=== PATIENT | male | born 1960 | race Caucasian/White ===

== ENCOUNTER 2017-11-14 19:11 | Observation (INO) ==
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
[2017-11-14] MEDS ORDERED: Bisacodyl 10 MG Supp RECTAL PRN (20:48)
[2017-11-14] MEDS ORDERED: Acetaminophen 325 MG Tablet PO PRN (20:48)
[2017-11-14] MEDS ORDERED: Haloperidol Inj 5 MG/ML Ampul IV.PUSH PRN (20:51)
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
[2017-11-14] MEDS: Sod Chloride 0.9% Inj 1,000 ML IV.CONT SCH (22:34)
[2017-11-15] MEDS: Sod Chloride 0.9% Inj 1,000 ML IV.CONT SCH ×3 (05:25→20:58)
[2017-11-15] MEDS: LORazepam 1 MG Tablet PO PRN (05:26)
[2017-11-15 06:41] LABS: Baso # (Auto) 0.1 th/mm3 (0.0-0.2); Baso % (Auto) 1.3 % (0.0-2.0); Hematocrit 38.3 % (39.0-51.0); Hemoglobin 13.3 gm/dL (13.0-17.0); Lymph # (Auto) 0.7 th/mm3 (1.0-4.8); Mean Corpuscular HGB Conc 34.7 % (32.0-36.0); Mean Corpuscular Hemoglobin 37.3 pg (27.0-34.0); Mean Corpuscular Volume 107.6 fL (80.0-100.0); Mean Platelet Volume 8.4 fL (7.0-11.0); Mono # (Auto) 0.4 th/mm3 (0.0-0.9); Mono % (Auto) 10.1 % (0.0-8.0); Neut % (Auto) 70.6 % (16.0-70.0); Platelet Count 47 th/mm3 (150-450); Red Blood Count 3.56 mil/mm3 (4.50-5.90); Red Cell Distribution Width 13.2 % (11.6-17.2); White Blood Count 4.3 th/mm3 (4.0-11.0)
[2017-11-15 07:01] LABS: Albumin 3.6 g/dL (3.4-5.0); Anion Gap 13 meq/L (5-15); Aspartate Aminotransferase 121 U/L (15-37); Blood Urea Nitrogen 4 mg/dL (7-18); Calcium 8.1 mg/dL (8.5-10.1); Carbon Dioxide 21.7 meq/L (21.0-32.0); Chloride 104 meq/L (98-107); Glomerular Filtration Rate Greater Than 89 mL/min (>89); Glucose,Random 64 mg/dL (74-106); Potassium 3.6 meq/L (3.5-5.1); Sodium 139 meq/L (136-145)
[2017-11-15 07:03] LABS: Alanine Aminotransferase 63 U/L (12-78)
[2017-11-15 07:05] LABS: Alkaline Phosphatase 56 U/L (45-117); Total Protein 7.5 g/dL (6.4-8.2)
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
[2017-11-15] MEDS: chlordiazePOXIDE 25 MG Capsule PO SCH ×2 (14:06→21:55)
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
[2017-11-16] MEDS: LORazepam 1 MG Tablet PO PRN (01:42)
[2017-11-16] MEDS: Sod Chloride 0.9% Inj 1,000 ML IV.CONT SCH (05:36)
[2017-11-16] MEDS: chlordiazePOXIDE 25 MG Capsule PO SCH (05:37)
[2017-11-16 12:09] VITALS: BP 142/88; PULSE 105; RESP 17; TEMP 98.2; O2SAT 99
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
--- NOTE | 2017-11-17 08:19 | P.DCO ---
- Physical Therapy Order: Evaluate and treat, Improve ambulation, Strength and gait training - Certification I have seen patient Tam Shepherd on 11/17/17. My clinical findings support the need for the requested home health care services because: Deconditioned with increased weakness I certify that my clinical findings support that this patient is homebound because: Impaired cognitive ability/safety, Unsafe to leave home unassisted, Need for psychosocial assistance
[2017-11-17] MEDS ORDERED: Magnesium Oxide 400 MG Tablet PO SCH (09:00)
== END 2017-11-16 16:21 | disposition home or self-care (01) ==
LOC: NEDA 19:11 → NEPC 19:11 → N06 19:11 → NEDA 21:17 → N06 11-16 15:38
PROVIDERS: ADMIT Internal Medicine; ATTEND Internal Medicine
DX: F17.210 Nicotine dependence, cigarettes, uncomplicated; Y07.02 Wife, perpetrator of maltreatment and neglect; S02.2XXA Fracture of nasal bones, initial encounter for closed fracture; Z96.1 Presence of intraocular lens; G89.29 Other chronic pain; Y04.2XXA Assault by strike against or bumped into by another person, initial encounter; J44.9 Chronic obstructive pulmonary disease, unspecified; M54.5 Low back pain; R45.851 Suicidal ideations; H54.61 Unqualified visual loss, right eye, normal vision left eye; F10.10 Alcohol abuse, uncomplicated; F32.9 Major depressive disorder, single episode, unspecified; H40.1133 Primary open-angle glaucoma, bilateral, severe stage; M54.2 Cervicalgia